=== PATIENT | female | born 1985 | race Caucasian/White ===

== ENCOUNTER 2016-08-26 07:53 | Emergency (ER) | payer OTHER ==
[2016-08-26 07:53] VITALS: BMI 25.8
[2016-08-26] MEDS ORDERED: Sodium Chloride 0.9% 1,000 ML IV STA (08:28)
--- NOTE | 2016-08-26 08:51 | ED PDOC ---
Arrival/HPI - General Chief Complaint: Flu-like Symptoms Time Seen by Provider: 08/26/16 08:28 Historian: Patient - History of Present Illness Narrative History of Present Illness (Text): 08/26/16 08:31 Miracle Bey is a 31 year old female who presents to the emergency department complaining of fever and generalized body aches associated with nausea, vomiting , and diarrhea, for past 2 days. She also reports she had a headache which resolved yesterday after taking Advil last night. Patient also had a fever of 102F yesterday, but is currently afebrile. Informs that she develops lightheadedness while standing up. Denies any chest pain, difficulty breathing, flank pain, urinary symptoms, or any other complaints a this time. Time/Duration: < week (2 days ) Symptom Onset: Gradual Symptom Course: Unchanged Severity Level: Mild Activities at Onset: Light Context: Home Past Medical History - Provider Review Nursing Documentation Reviewed: Yes - Infectious Disease Hx of Infectious Diseases: None - Reproductive Menopause: No - Cardiac Hx Cardiac Disorders: No - Pulmonary Hx Respiratory Disorders: Yes Hx Asthma: Yes - Neurological Hx Neurological Disorder: No - HEENT Hx HEENT Disorder: No - Renal Hx Renal Disorder: No - Endocrine/Metabolic Hx Endocrine Disorders: No - Hematological/Oncological Hx Blood Disorders: No - Integumentary Hx Dermatological Disorder: No - Musculoskeletal/Rheumatological Hx Musculoskeletal Disorders: No - Gastrointestinal Hx Gastrointestinal Disorders: No - Genitourinary/Gynecological Hx Genitourinary Disorders: No - Psychiatric Hx Psychophysiologic Disorder: No Hx Substance Use: No - Anesthesia Hx Anesthesia: No Hx Anesthesia Reactions: No Hx Malignant Hyperthermia: No Family/Social History - Physician Review Nursing Documentation Reviewed: Yes Family/Social History: No Known Family HX Smoking Status: Heavy Smoker > 10 Cigarettes Daily Hx Alcohol Use: No Hx Substance Use: No Allergies/Home Meds Allergies/Adverse Reactions: Allergies No Known Allergies Allergy (Verified 07/16/16 09:02) Home Medications: Home Meds Medication Instructions Recorded Confirmed Albuterol 0.083% [Albuterol 3 ml IH PRN PRN 07/16/16 08/26/16 Sulfate 3 Ml] Review of Systems - Physician Review All systems were reviewed & negative as marked: Yes - Review of Systems Constitutional: Fatigue (generalized body aches ), Fevers Respiratory: Normal. absent: SOB, Sputum Cardiovascular: Normal. absent: Chest Pain, Palpitations Gastrointestinal: Diarrhea, Nausea, Vomiting Genitourinary Female: Normal. absent: Dysuria, Frequency Neurological: Headache, Other (lightheadedness ) Psychiatric: Normal Physical Exam - Physical Exam Narrative Physical Exam (Text): Constitutional: No acute distress. Head: Normocephalic. Atraumatic. Eyes: PERRL. ENT: Moist mucous membranes. Neck: Supple. Cardiovascular: Regular rate. Chest: Diffuse tenderness. Respiratory: Clear to auscultation bilaterally. GI: Soft. Nondistended. Diffuse tenderness. Back: Diffuse tenderness. Musculoskeletal: No tenderness or swelling of extremities. Skin: No rash. Neurologic: Alert, no focal deficit. Vital Signs Reviewed: Yes Vital Signs Temp Pulse Resp BP Pulse Ox 08/26/16 10:17 98.5 F 78 20 99/68 L 99 08/26/16 08:00 98.4 F 90 18 108/67 98 Temperature: Afebrile Blood Pressure: Normal Pulse: Regular Respiratory Rate: Normal Appearance: Positive for: Well-Appearing, Non-Toxic, Comfortable Pain Distress: None Mental Status: Positive for: Alert and Oriented X 3 Medical Decision Making ED Course and Treatment: 08/26/16 08:53 Impression: A 31 year old female who presents to the emergency department complaining of generalized body aches and fever associated with nausea, vomiting , and diarrhea for 2 days. On PE, patient had diffuse chest, abdominal and back tenderness. Plan: -- Labs -- Chest X-ray -- IV fluids -- Toradol -- Zofran -- Influenza -- HCG -- Urinalysis -- Reassess and disposition Progress Notes: 08/26/16 10:01 Chest X-ray results reviewed: IMPRESSION: No focal consolidation, significant pleural effusion, or definite pneumothorax identified. Patient appears improved. Vital signs normal. Labs unremarkable other than nonspecific leukocytosis. CXR clear and UA no infection. Will treat as viral infection, continue PO fluids, ibuprofen, f/u PMD, instructed to return to ER for worsening pain, vomiting, dyspnea, or any other problem. - Lab Interpretations Lab Results: 08/26/16 09:01 08/26/16 09:01 Lab Results 08/26/16 09:22: Influenza Typ A,B (EIA) Negative for flu a/b 08/26/16 09:01: WBC 16.0 H D, RBC 4.77, Hgb 13.2, Hct 39.5, MCV 82.8, MCH 27.7, MCHC 33.4, RDW 15.7 H, Plt Count 227, MPV 11.6 H, Gran % 81.1 H, Lymph % (Auto) 12.0 L, [facility] % (Auto) 6.4 H, Eos % (Auto) 0.4 L, Baso % (Auto) 0.1, Gran # 12.95 H, Lymph # 1.9, [facility] # 1.0 H, Eos # 0.1, Baso # 0.02, Sodium 138, Potassium 4.0, Chloride 104, Carbon Dioxide 23, Anion Gap 15, BUN 12, Creatinine 0.6, Est GFR ( Amer) > 60, Est GFR (Non-Af Amer) > 60, Random Glucose 98, Calcium 8.7, Total Bilirubin 0.5, AST 24, ALT 16, Alkaline Phosphatase 90, Total Protein 7.8, Albumin 3.9, Globulin 4.0, Albumin/Globulin Ratio 1.0 L, Lipase 34 08/26/16 08:50: Urine Color Yellow, Urine Appearance Cloudy, Urine pH 6.5, Ur Specific [place] 1.025, Urine Protein Trace H, Urine Glucose (UA) Negative, Urine Ketones Negative, Urine Blood Moderate H, Urine Nitrate Negative, Urine Bilirubin Negative, Urine Urobilinogen 1.0 H, Ur Leukocyte Esterase Negative, Urine RBC 0 - 2, Urine WBC 1 - 3, Ur Epithelial Cells 3 - 4, Urine Bacteria Mod , Urine HCG, Qual Negative I have reviewed the lab results: Yes - RAD Interpretation Narrative RAD Interpretations (Text): Chest, one view. FINDINGS: LUNGS: No focal consolidation. Please note that chest x-ray has limited sensitivity for the detection of pulmonary masses. PLEURA: No significant pleural effusion identified. No definite pneumothorax . CARDIOVASCULAR: The cardiomediastinal silhouette appears within normal limits of size. OSSEOUS STRUCTURES: No acute osseous abnormality identified. VISUALIZED UPPER ABDOMEN: Unremarkable. OTHER FINDINGS: None. IMPRESSION: No focal consolidation, significant pleural effusion, or definite pneumothorax identified. Radiology Orders: 08/26/16 08:28 CHEST PORTABLE [RAD] Stat Can Pusher: Radiologist - Medication Orders Current Medication Orders: Discontinued Medications Sodium Chloride (Sodium Chloride 0.9%) 1,000 mls @ 999 mls/hr IV .Q1H1M STA Stop: 08/26/16 09:28 Last Admin: 08/26/16 08:50 Dose: 999 MLS/HR eMAR Start Stop Document 08/26/16 08:50 [place] (Rec: 08/26/16 09:02 [place] [id number]) Intravenous Solution Start Date 08/26/16 Start Time 08:50 End Date 08/26/16 End time 09:51 Total Infusion Time 61 Ketorolac Tromethamine (Toradol) 30 mg IVP STAT STA Stop: 08/26/16 08:29 Last Admin: 08/26/16 08:55 Dose: 30 MG IVP Administration Document 08/26/16 08:55 SF (Rec: 08/26/16 09:01 [place] [id number]) Charges for Administration # of IVP Administrations 1 Ondansetron HCl (Zofran Inj) 8 mg IVP STAT STA Stop: 08/26/16 08:29 Last Admin: 08/26/16 08:55 Dose: 8 MG IVP Administration Document 08/26/16 08:55 [place] (Rec: 08/26/16 09:[id number]) Charges for Administration # of IVP Administrations 1 - Scribe Statement The provider has reviewed the documentation as recorded by the Estephania Ash Provider Attestation: All medical record entries made by the Isabelibkaren were at my direction and personally dictated by me. I have reviewed the chart and agree that the record accurately reflects my personal performance of the history, physical exam, medical decision making, and the department course for this patient. I have also personally directed, reviewed, and agree with the discharge instructions and disposition. Disposition/Present on Arrival - Present on Arrival Any Indicators Present on Arrival: No History of DVT/PE: No History of Uncontrolled Diabetes: No Urinary Catheter: No History of Decub. Ulcer: No History Surgical Site Infection Following: None - Disposition Have Diagnosis and Disposition been Completed?: Yes Diagnosis: Influenza-like illness Disposition: HOME/ ROUTINE Disposition Time: 10:04 Patient Plan: Discharge Condition: STABLE Discharge Instructions (ExitCare): Viral Syndrome (ED) Prescriptions: Ibuprofen [Motrin] 600 mg PO Q6 #25 tab Ondansetron ODT [Zofran ODT] 4 mg PO Q8 #12 odt Forms: WORK NOTE
[2016-08-26 09:01] LABS: PH,URINE 6.5 (4.7-8.0); URINE BILIRUBIN NEGATIVE (NEGATIVE); URINE BLOOD MODERATE (NEGATIVE); URINE GLUCOSE (UA) NEGATIVE (NEGATIVE); URINE KETONE NEGATIVE (NEGATIVE); URINE LEUKOCYTE ESTERASE NEGATIVE Leu/uL (NEGATIVE); URINE PROTEIN TRACE mg/dL (<30 mg/dL)
[2016-08-26 09:02] LABS: ADD MANUAL DIFF? NO
[2016-08-26 09:08] LABS: URINE APPEARANCE CLOUDY (CLEAR); URINE COLOR YELLOW (YELLOW)
[2016-08-26 09:09] LABS: BASO # 0.02 K/mm3 (0.0-2.0); BASO % 0.1 % (0.0-3.0); EOS # 0.1 (0.0-0.7); EOS % 0.4 % (1.5-5.0); GRAN # 12.95 (1.4-6.5); GRAN % 81.1 % (50.0-68.0); HEMATOCRIT 39.5 % (36.0-48.0); LYMPH # 1.9 (1.2-3.4); MEAN CELL VOLUME 82.8 fL (80.0-105.0); MEAN CORPUSCULAR HEMOGLOBIN 27.7 pg (25.0-35.0); MEAN CORPUSCULAR HGB CONC 33.4 g/dl (31.0-37.0); MEAN PLATELET VOLUME 11.6 fl (7.0-11.0); MONO % 6.4 % (1.0-6.0); PLATELET COUNT 227 10^3/uL (120.0-450.0); RED CELL DISTRIBUTION WIDTH 15.7 % (11.5-14.5)
[2016-08-26 09:10] LABS: URINE BACTERIA MOD (NEG); URINE RBC 0 - 2 /hpf (0-2)
--- NOTE | 2016-08-26 09:11 | RAD ---
HISTORY: fever COMPARISON: None available. TECHNIQUE: Chest, one view. FINDINGS: LUNGS: No focal consolidation. Please note that chest x-ray has limited sensitivity for the detection of pulmonary masses. PLEURA: No significant pleural effusion identified. No definite pneumothorax . CARDIOVASCULAR: The cardiomediastinal silhouette appears within normal limits of size. OSSEOUS STRUCTURES: No acute osseous abnormality identified. VISUALIZED UPPER ABDOMEN: Unremarkable. OTHER FINDINGS: None. IMPRESSION: No focal consolidation, significant pleural effusion, or definite pneumothorax identified.
[2016-08-26 09:17] LABS: ALKALINE PHOSPHATASE 90 U/L (38-133); ALT/SGPT 16 U/L (7-56); AST/SGOT 24 U/L (15-39); BILIRUBIN,TOTAL 0.5 mg/dL (0.2-1.3); BLOOD UREA NITROGEN 12 mg/dL (7-21); CALCIUM 8.7 mg/dL (8.4-10.5); CARBON DIOXIDE 23 mmol/L (21-33); CHLORIDE 104 mmol/L (98-107); GFR AFRICAN-AMERICAN > 60; GLUCOSE,RANDOM 98 mg/dL (70-110); LIPASE 34 U/L (23-300); SODIUM 138 mmol/L (132-148); TOTAL PROTEIN 7.8 g/dL (5.8-8.3)
[2016-08-26 10:21] VITALS: BP 99/68; PULSE 78; RESP 20; TEMP 98.5; O2SAT 99
== END 2016-08-26 10:25 | disposition home or self-care (01) ==
LOC: ED 07:53
DX: J11.1 Influenza due to unidentified influenza virus with other respiratory manifestations (principal)
CPT/HCPCS: 71010; 80053; 81001; 83690; 84703; 85025; 87804; 96361; 96374; 96375; 99284; J1885; J2405; J7040

== ENCOUNTER 2018-09-04 19:05 | Emergency (ER) | payer SELFPAY ==
[2018-09-04 19:28] VITALS: RESP 18; TEMP 98.2; O2SAT 100; BMI 24.7
--- NOTE | 2018-09-04 20:14 | ED PDOC ---
Arrival/HPI - General Chief Complaint: Back Pain Time Seen by Provider: 09/04/18 19:19 Historian: Patient - History of Present Illness Narrative History of Present Illness (Text): 09/04/18 19:40 33 year old female, with no significant past medical history, presents to the emergency department for evaluation of lower back discomfort after lifting heavy boxes while at work. Patient is able to ambulate without difficulty. Patient denies any neck pain, change in bowel or urinary habits, paresthesia, or any other complaints/injuries. PMD: Dr. Bucky Schafer Symptom Onset: Sudden Symptom Course: Unchanged Activities at Onset: Light Context: Work Past Medical History - Provider Review Nursing Documentation Reviewed: Yes - Infectious Disease Hx of Infectious Diseases: None - Cardiac Hx Cardiac Disorders: No - Pulmonary Hx Respiratory Disorders: Yes Hx Asthma: Yes - Neurological Hx Neurological Disorder: No - HEENT Hx HEENT Disorder: No - Renal Hx Renal Disorder: No - Endocrine/Metabolic Hx Endocrine Disorders: No - Hematological/Oncological Hx Blood Disorders: No - Integumentary Hx Dermatological Disorder: No - Musculoskeletal/Rheumatological Hx Musculoskeletal Disorders: No - Gastrointestinal Hx Gastrointestinal Disorders: No - Genitourinary/Gynecological Hx Genitourinary Disorders: No - Psychiatric Hx Psychophysiologic Disorder: No Hx Substance Use: No - Anesthesia Hx Anesthesia: No Hx Anesthesia Reactions: No Hx Malignant Hyperthermia: No Family/Social History - Physician Review Nursing Documentation Reviewed: Yes Family/Social History: No Known Family HX Smoking Status: Heavy Smoker > 10 Cigarettes Daily Hx Alcohol Use: No Hx Substance Use: No Allergies/Home Meds Allergies/Adverse Reactions: Allergies No Known Allergies Allergy (Verified 09/04/18 19:29) Review of Systems - Physician Review All systems were reviewed & negative as marked: Yes - Review of Systems Gastrointestinal: absent: Other (no change in bowel habits) Genitourinary Female: absent: Other (no change in urinary habits) Musculoskeletal: Back Pain. absent: Neck Pain Neurological: absent: Other (paresthesia) Physical Exam Vital Signs Reviewed: Yes Vital Signs Temp Pulse Resp BP Pulse Ox 09/04/18 19:27 98.2 F 77 18 116/75 100 Temperature: Afebrile Blood Pressure: Normal Pulse: Regular Respiratory Rate: Normal Appearance: Positive for: Well-Appearing, Non-Toxic, Comfortable Pain Distress: None Mental Status: Positive for: Alert and Oriented X 3 - Systems Exam Head: Present: Atraumatic, Normocephalic Pupils: Present: PERRL Extroacular Muscles: Present: EOMI Conjunctiva: Present: Normal Mouth: Present: Moist Mucous Membranes Neck: Present: Normal Range of Motion Respiratory/Chest: Present: Clear to Auscultation, Good Air Exchange. No: Respiratory Distress, Accessory Muscle Use Cardiovascular: Present: Regular Rate and Rhythm, Normal S1, S2. No: Murmurs Abdomen: No: Tenderness, Distention, Peritoneal Signs Back: Present: Paraspinal Tenderness (mild paraspinal tenderness and spasm). No: Other (no dorsalspinal tenderness) Upper Extremity: Present: Normal Inspection. No: Cyanosis, Edema Lower Extremity: Present: Normal Inspection. No: Edema Neurological: Present: GCS=15, Speech Normal, Motor Func Grossly Intact, Normal Sensory Function Skin: Present: Warm, Dry, Normal Color. No: Rashes Psychiatric: Present: Alert, Oriented x 3, Normal Insight, Normal Concentration Medical Decision Making ED Course and Treatment: 09/04/18 19:40 Impression: 33 year old female presents for evaluation of lower back discomfort after lifting heavy boxes while at work. Plan: -- Flexeril, Toradol -- Reassess and disposition Progress Notes: - Medication Orders Current Medication Orders: Discontinued Medications Cyclobenzaprine HCl (Flexeril) 10 mg PO ONCE ONE Stop: 09/04/18 19:49 Last Admin: 09/04/18 19:59 Dose: 10 mg Ketorolac Tromethamine (Toradol) 60 mg IM ONCE ONE Stop: 09/04/18 19:49 Last Admin: 09/04/18 19:59 Dose: 60 mg MAR Pain Assessment Document 09/04/18 19:59 [place] (Rec: 09/04/18 20:00 [place] [id number]) Pain Reassessment Is this a pain reassessment? No Sleep Is patient sleeping during reassessment? No Presence of Pain Presence of Pain Yes Pain Scale Used Protocol: PSCALES Pain Scale Used Numeric Location Pain Location Body Site Back Description Description Intermittent Intensity of Pain at present 7 IM Administration Charges Document 09/04/18 19:59 [place] (Rec: 09/04/18 20:00 [place] [id number]) Injection Site MAR Injection Site Left Deltoid Charges for Administration # of IM Administrations 1 - Scribe Statement The provider has reviewed the documentation as recorded by the Scribe Alaa Marcia Provider Estephania Attestation: All medical record entries made by the Estephania were at my direction and personally dictated by me. I have reviewed the chart and agree that the record accurately reflects my personal performance of the history, physical exam, medical decision making, and the department course for this patient. I have also personally directed, reviewed, and agree with the discharge instructions and disposition. Disposition/Present on Arrival - Present on Arrival Any Indicators Present on Arrival: No History of DVT/PE: No History of Uncontrolled Diabetes: No Urinary Catheter: No History of Decub. Ulcer: No History Surgical Site Infection Following: None - Disposition Have Diagnosis and Disposition been Completed?: Yes Diagnosis: Low back strain, Muscle spasm Disposition: HOME/ ROUTINE Disposition Time: 20:54 Patient Plan: Discharge Condition: GOOD Discharge Instructions (ExitCare): Muscle Strain (DC), Low Back Pain (DC), Lumbar Muscle Strain (DC) Additional Instructions: Rest/no strenuous physical activity/medication as prescribed/follow up with your doctor Prescriptions: Cyclobenzaprine [Cyclobenzaprine HCl] 10 mg PO TID PRN #15 tab PRN Reason: Muscle Spasm Naproxen [Naprosyn] 500 mg PO BID PRN #14 tab PRN Reason: Pain Forms: [facility] (Maltese), WORK NOTE
[2018-09-04 21:08] VITALS: BP 118/65; PULSE 73
== END 2018-09-04 21:00 | disposition home or self-care (01) ==
LOC: ED 19:05
DX: S39.012A Strain of muscle, fascia and tendon of lower back, initial encounter (principal); X50.0XXA Overexertion from strenuous movement or load, initial encounter; Y92.89 Other specified places as the place of occurrence of the external cause; Y99.0 Civilian activity done for income or pay; M62.838 Other muscle spasm
CPT/HCPCS: 81025; 96372; 99283; J1885